=== PATIENT | female | born 1970 | race African-American/Black ===

== ENCOUNTER 2020-11-15 16:30 | Outpatient (CLI) | payer BC | END 2020-11-15 16:31 | disposition critical access hospital (66) | LOC: EMS 16:30 | DX: S99.912A Unspecified injury of left ankle, initial encounter (principal); W18.39XA Other fall on same level, initial encounter; Y93.51 Activity, roller skating (inline) and skateboarding | CPT/HCPCS: A0425; A0427 ==

== ENCOUNTER 2020-11-15 16:50 | Emergency (ER) | payer BC, MEDICAID ==
[2020-11-15] MEDS ORDERED: HYDROmorphone 1 MG/ML CARPUJECT IVP STA ×2 (17:15→17:54)
[2020-11-15] MEDS ORDERED: KETOROLAC 30 MG/ML VIAL IVP STA (17:16)
[2020-11-15 18:06] VITALS: BP 116/50
--- NOTE | 2020-11-15 18:08 | ED Physician Documentation ---
PD HPI LOWER EXT INJURY - Stated complaint Stated Complaint: GLF - Chief complaint Chief Complaint: Trauma Ext - History obtained from History obtained from: Patient - History of Present Illness PD HPI LOW EXT INJURY LOCATION: Left, Ankle Type of injury: Fall (while rollerblading, had fall and twist of ankle, with pain and apparent angulation, that was straightened out at the scene. Here by EMS.) Where injury occurred: Other (roller rink) Timing - onset: How many minutes ago (30) Timing - details: Abrupt onset, Still present Improved by: Immobilization (the splint enroute helped) Worsened by: Moving, Palpating Associated symptoms: Swelling. No: Weakness, Numbness Similar symptoms before: Has not had sx before Review of Systems Constitutional: denies: Fever Nose: denies: Rhinorrhea / runny nose, Congestion Throat: denies: Sore throat Respiratory: denies: Cough Skin: denies: Abrasion (s), Laceration (s) Neurologic: denies: Altered mental status, Head injury PD PAST MEDICAL HISTORY - Past Medical History Past Medical History: Yes Cardiovascular: None Respiratory: None Neuro: Other Endocrine/Autoimmune: HyPOthyroidism GI: Hemorrhoids, Other : Frequency HEENT: None Psych: Claustrophobia Musculoskeletal: Other Derm: None - Past Surgical History 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 Neuro: Other - Present Medications Home Medications: Ambulatory Orders Medication Instructions Recorded Confirmed Ibuprofen [Motrin] 600 mg PO TID #30 tab 12/21/15 Multivitamin [Multivitamins] 12/21/15 [place]-3S/Dha/Epa/Fish Oil [Fish 12/21/15 Oil 1,200 mg Softgel] Tramadol HCl 50 mg PO Q6H PRN #20 tablet 12/21/15 Hydrocodone/Acetaminophen [[place] 1 each PO Q6H PRN #15 tablet 01/31/20 5-325 Tablet] Naproxen 500 mg PO BID #25 tablet 01/31/20 Tizanidine HCl 4 mg PO TID PRN #30 capsule 01/31/20 HYDROcod/ACETAM 5/325 [[place] 5/325] 1 ea PO Q6H PRN #20 tablet 11/15/20 Ibuprofen [Motrin] 600 mg PO TID PRN #25 tab 11/15/20 - Allergies Allergies/Adverse Reactions: Allergies Allergy/AdvReac Type Severity Reaction Status Date / Time No Known Drug Allergies Allergy Verified 11/15/20 17:01 - Social History Does the pt smoke?: No Smoking Status: Never smoker Does the pt drink ETOH?: No Does the pt have substance abuse?: No - Immunizations Immunizations are current?: Yes PD ED PE NORMAL - Vitals Vital signs reviewed: Yes - General General: Alert and oriented X 3, Well developed/nourished, Other (appears in pain) - HEENT HEENT: Atraumatic - Neck Neck: Supple, no meningeal sign, No bony TTP - Derm Derm: Normal color, Warm and dry - Extremities Extremities: Other (left ankle with swelling and marked tenderness bilaterally. ) - Neuro Neuro: Alert and oriented X 3, No motor deficit, No sensory deficit, Normal speech Results - Vitals Vitals: Vital Signs - 24 hr 11/15/20 16:58 Temperature 36.9 C Heart Rate 91 Respiratory 16 Rate Blood Pressure 123/47 L O2 Saturation 100 Oxygen O2 Source Room air - Rads (name of study) left ankle Radiology: Prelim report reviewed (bimalleolar fracture with subluxation of the mortis. ), See rad report Procedures - Splint (location) ankle left Splint applied by: Physician, Tech Type of splint: Fiberglass, Posterior, Stirrup Other: Patient tolerated well (given IV pain meds prior to splinting.), No complications, Neurovascular intact, Good alignment, Crutches provided PD MEDICAL DECISION MAKING - ED course Complexity details: reviewed results, considered differential, d/w patient, d/w mental health consultant (Dr. Montero, mental health consultant for ortho, who reviewed the images and we discussed treatment plan/time course. ) Departure - Departure Disposition: 01 Home, Self Care Clinical Impression: Bimalleolar ankle fracture Qualifiers: Encounter type: initial encounter Fracture type: closed Laterality: left Qualified Code(s): S82.842A - Displaced bimalleolar fracture of left lower leg, initial encounter for closed fracture Condition: Stable Record reviewed to determine appropriate education?: Yes Instructions: ED Fx Ankle General Follow-Up: GABI ROMERO, MSN, ENGINEERING DESIGNER [Primary Care Provider] - Roney Montero MD [Provider Admit Priv/Credential] - Prescriptions: Ibuprofen [Motrin] 600 mg PO TID PRN #25 tab PRN Reason: Pain HYDROcod/ACETAM 5/325 [[place] 5/325] 1 ea PO Q6H PRN #20 tablet PRN Reason: Pain Comments: In place. Nonweightbearing with crutches. Follow-up with your orthopedic clinic later this week or within a week or so. Call Monday morning for an appointment. Elevate rest and ice the ankle often. The orthopedists want the swelling of these types of fracture to go down before doing surgical fixation (plates and screws). Therefore the maneuvers to decrease swelling are good with elevate ice and rest. Use anti-inflammatory such as ibuprofen 3 times a day. To that add Tylenol every 4 hours if needed for pain or hydrocodone if needed for worse pain. The worst pain of this typically is the first several days as initial inflammation and swelling decrease. This will however take about 6 weeks for full healing even after repair.
--- NOTE | 2020-11-15 18:11 | XRAY Report ---
PROCEDURE: Ankle 3 View LT INDICATIONS: ankle injury walking TECHNIQUE: 3 views of the ankle were acquired. COMPARISON: None FINDINGS: Bones: Comminuted, mildly displaced distal fibular fracture. Ankle mortise is normally aligned. No s uspicious bony lesions. Soft tissues: Ankle edema. Achilles tendon appears normal. IMPRESSION: Comminuted mildly displaced distal fibular fracture is present. Reviewed by: Letitia Jean Baptiste MD on 11/15/2020 6:09 PM PDT Approved by: Letitia Jean Baptiste MD on 11/15/2020 6:09 PM PDT Station ID: [id number]
== END 2020-11-15 18:48 | disposition home or self-care (01) ==
LOC: EDUNIT# → ED 16:50
DX: S82.842A Displaced bimalleolar fracture of left lower leg, initial encounter for closed fracture (principal); W18.30XA Fall on same level, unspecified, initial encounter; Y93.51 Activity, roller skating (inline) and skateboarding; Y92.331 Roller skating rink as the place of occurrence of the external cause
CPT/HCPCS: 29515; 73610; 96374; 96375; 96376; 99284; J1170

== ENCOUNTER 2020-11-24 17:21 | Outpatient (CLI) | payer BC ==
--- NOTE | 2020-11-24 15:28 | XRAY Report ---
PROCEDURE: Ankle 3 View LT INDICATIONS: L ANKLE PX TECHNIQUE: 3 views of the ankle were acquired. COMPARISON: 11/15/2020. FINDINGS: Bones: There is a spiral fracture of the distal fibula redemonstrated extending to the tibiofibular s yndesmosis. There is associated mild syndesmotic widening as well as mild widening of the medial ankl e mortise. There is a mildly displaced fracture of the medial malleolus also redemonstrated. A suspec kirill mildly displaced fracture of the posterior malleolus is also noted on the lateral view. Soft tissues: There is a small tibiotalar joint effusion. Achilles tendon appears intact. IMPRESSION: 1. Fractures of the medial and lateral malleoli demonstrated as well as suspected fracture of the pos terior malleolus. 2. Widening of the medial ankle mortise and distal tibiofibular syndesmosis compatible with ligamento us injury. Reviewed by: Modesto Garcia MD on 11/24/2020 3:27 PM PDT Approved by: Modesto Garcia MD on 11/24/2020 3:27 PM PDT Station ID: [id number]
== END 2020-11-24 23:59 | disposition home or self-care (01) ==
LOC: DI.N 17:21
PROVIDERS: ATTEND Orthopaedic Surgery
DX: S82.842A Displaced bimalleolar fracture of left lower leg, initial encounter for closed fracture (principal); R93.6 Abnormal findings on diagnostic imaging of limbs
CPT/HCPCS: 0202U

== ENCOUNTER 2020-11-25 11:22 | Day surgery (SDC) | payer BC ==
--- OUTSIDE RECORDS SUMMARY | 2020-11-25 11:26 | EXTERNAL MEDICAL SUMMARY RPT | Continuity of Care Document ---
:1970 Demographics Phone Unavailable Preferred Language Unknown Marital Status Unknown Religion Affiliation Unknown Race Unknown Ethnic Group Unknown Author Organization [place] Address [address] [id number] Phone Allergies Encounters Medications Problems Results
[2020-11-25] MEDS ORDERED: GABAPENTIN 400 MG CAPSULE ONE (11:34)
[2020-11-25] MEDS ORDERED: CELECOXIB 100 MG CAPSULE PO ONE (11:34)
[2020-11-25] MEDS ORDERED: ACETAMINOPHEN 1,000 MG/100 ML 100 ML IV ONE (11:35)
[2020-11-25] MEDS ORDERED: ceFAZolin 2 GM/50 ML 2 GM/50 ML BAG IV ONE (11:35)
[2020-11-25] MEDS ORDERED: LACTATED RINGERS 1,000 ML IV ONE ×3 (11:55→17:27)
[2020-11-25 12:51] LABS: B. PARAPERTUSSIS- RESP PCR PAN NOT DETECTED; B. PERTUSSIS- RESP PCR PANEL NOT DETECTED; C. PNEUMONIAE- RESP PCR PANEL NOT DETECTED; CORONAVIRUS 229E-RESP PCR NOT DETECTED; CORONAVIRUS HKU1-RESP PCR NOT DETECTED; CORONAVIRUS NL63-RESP PCR NOT DETECTED; CORONAVIRUS OC43-RESP PCR NOT DETECTED; HUMAN METAPNEUMOVIRUS NOT DETECTED; INFLUENZA A- RESP PCR PANEL NOT DETECTED; INFLUENZA B - RESP PCR PANEL NOT DETECTED; M. PNEUMONIAE- RESP PCR PANEL NOT DETECTED; PARAINFLUENZA VIRUS 1 NOT DETECTED; PARAINFLUENZA VIRUS 2 NOT DETECTED; PARAINFLUENZA VIRUS 3 NOT DETECTED; PARAINFLUENZA VIRUS 4 NOT DETECTED; RHINOVIRUS/ENTEROVIRUS NOT DETECTED; RSV- RESP PCR PANEL NOT DETECTED; SARS-CoV-2 -RESP PCR PANEL NOT DETECTED
[2020-11-25] MEDS ORDERED: PROPOFOL 200 MG/20 ML VIAL IVP ONE (14:02)
[2020-11-25] MEDS ORDERED: fentaNYL 100 MCG/2 ML VIAL ONE ×2 (14:02→16:25)
[2020-11-25] MEDS ORDERED: MIDAZOLAM 2 MG/2 ML VIAL ONE (14:02)
[2020-11-25] MEDS ORDERED: ROPIVACAINE 0.5% PF 20 ML AMPULE ONE (14:02)
[2020-11-25] MEDS ORDERED: DEXAMETHASONE 4 MG/ML VIAL ONE ×2 (14:02→14:42)
[2020-11-25] MEDS ORDERED: oxyCODONE 5 MG TABLET PO PRN (14:02)
[2020-11-25] MEDS ORDERED: LIDOCAINE-MPF 2% 5 ML VIAL ONE (14:02)
[2020-11-25] MEDS ORDERED: KETOROLAC 15 MG/ML VIAL IVP STA (14:02)
--- NOTE | 2020-11-25 14:04 | ANESTHESIA ---
Pre-Anesthesia VS, & Labs - Diagnosis left ankle fracture - Procedure ORIF left fracture Vital Signs: Temp Pulse Resp BP Pulse Ox 36.5 C 86 15 152/75 H 98 11/25/20 11:57 11/25/20 11:57 11/25/20 11:57 11/25/20 11:57 11/25/20 11:57 Height: 5 ft 4 in Weight (kg): 69 kg Body Mass Index: 26.1 BMI Classification: Overweight - NPO >8 hours - Is Patient ?: No - Lab Results Current Lab Results: Laboratory Tests 11/25/20 12:16: POC Whole Bld Glucose 95 Home Medications and Allergies Multivitamin [Multivitamins] 12/21/15 [place]-3S/Dha/Epa/Fish Oil [Fish Oil 1,200 mg Softgel] 12/21/15 Allergies/Adverse Reactions: Allergies Allergy/AdvReac Type Severity Reaction Status Date / Time No Known Drug Allergies Allergy Verified 11/25/20 12:21 Anes History & Medical History - Anesthetic History Anesthesia Complications: reports: No previous complications - Medical History Cardiovascular: reports: None Pulmonary: reports: None Gastrointestinal: reports: Hemorrhoids, Other Urinary: reports: Frequency Neuro: reports: Other Musculoskeletal: reports: Other Endocrine/Autoimmune: reports: HyPOthyroidism Skin: reports: None Smoking Status: Never smoker - Surgical History Gynecologic: reports: Other Neurologic: reports: Craniotomy Exam General: Alert Dental: Dentures full Upper, Dentures full Lower Mouth Opening: Greater than 4 Fingerbreadths Mallampati classification: II Thyromental Distance: greater than 6 cm Respiratory: Lungs clear Cardiovascular: Regular rate Plan Anesthesia Type: General Consent for Procedure(s) Verified and Reviewed: Yes Code Status: Attempt Resuscitation ASA classification: 2-Mild systemic disease Is this case an emergency?: No
[2020-11-25] MEDS ORDERED: fentaNYL 100 MCG/2 ML VIAL IVP PRN (14:08)
[2020-11-25] MEDS ORDERED: ATROPINE ABBOJECT 1 MG/10 ML SYRINGE IVP PRN (14:08)
[2020-11-25] MEDS ORDERED: ePHEDrine 50 MG/ML VIAL IVP PRN (14:08)
[2020-11-25] MEDS ORDERED: METOCLOPRAMIDE 10 MG/2 ML VIAL IVP PRN (14:08)
[2020-11-25] MEDS ORDERED: HYDROmorphone 0.5 MG/0.5 ML SYRINGE IVP PRN (14:08)
[2020-11-25] MEDS ORDERED: MORPHINE 2 MG/ML CARPUJECT IVP PRN (14:08)
[2020-11-25] MEDS ORDERED: NALOXONE 0.4 MG/ML VIAL IVP PRN (14:08)
[2020-11-25] MEDS ORDERED: ONDANSETRON 4 MG/2 ML VIAL IVP PRN (14:08)
[2020-11-25] MEDS ORDERED: LACTATED RINGERS 1,000 ML IV SCH (15:00)
[2020-11-25] MEDS ORDERED: KETOROLAC 30 MG/ML VIAL ONE (16:45)
[2020-11-25] MEDS ORDERED: ONDANSETRON 4 MG/2 ML VIAL ONE (16:45)
--- NOTE | 2020-11-25 17:00 | OPERATIVE REPORT ---
Operative Report - General Procedure Date: 11/25/20 Planned Procedure: Open reduction internal fixation bimalleolar fracture left ankle Pre-Op Diagnosis: Displaced bimalleolar fracture left ankle Procedure Performed: Open reduction internal fixation bimalleolar fracture left ankle including medial and lateral malleoli Post Op Diagnosis: Same as preop diagnosis - Procedure Note Primary Surgeon: Bruce Cordero MD Secondary Surgeon: Manjit MAE, David Mccracken PAC Anesthesia Technique: General ET tube, Regional block Estimated Blood Loss (mL): 25 Indications: This is a 50-year-old active woman, injured her left ankle rollerskating and sustained a closed, displaced bimalleolar fracture of the left ankle approximately 8 to 9 days ago. She was seen yesterday for the first time in the orthopedic clinic.X-rays show displaced bimalleolar fracture of the left ankle, question of a possible posterior malleolar fracture. The fracture of the medial malleolus was at the joint line and the fracture of the lateral malleolus extended from the joint line in a proximal and spiral direction. Complications: None - Other Other Information/Narrative: The patient was brought to the operating room, placed in the supine position. General anesthesia was achieved. The left leg was placed on a foam bolster and a gel bag was placed beneath the left buttock to help with internal rotation of the left leg. Pneumatic tourniquet was applied to the proximal left thigh. The skin over the thigh was protected with cast padding. The left lower extremity was prepped and draped in a sterile manner in the usual fashion. A timeout procedure was performed by the entire operating room team and all were in agreement. The medial aspect of the ankle was approached with a longitudinal incision over the medial malleolus. Care was taken to protect the saphenous vein. The fracture was identified, fracture hematoma removed with curette and irrigation. A small medial arthrotomy was made into the ankle joint. The ankle joint was then inspected and the plafond and and talar articular cartilage appeared to be intact. I did not see a definite posterior malleolar fracture. A longitudinal incision was made over the lateral malleolus beginning at the tip of the lateral malleolus and extending it proximally along the posterior border of the fibula. The peroneal muscle and tendons were retracted in the posterior lateral aspect of the fibula was subperiosteally exposed. The fracture hematoma was removed with curette and irrigating fluid. The lateral malleolar fracture was temporarily reduced and secured with a small bone clamp and a intramedullary K wire. The [employer] posterior lateral locking plate was applied and secured with K wires. Screws were placed proximal and distal, nonlocking to compress the plate to bone and a lag screw was placed through the plate across the fracture. An intramedullary screw was then placed from the tip of the lateral malleolus, 60 mm in length to provide additional fixation. Screws were then filled proximal and distal to the fracture site. The C-arm image intensifier was utilized for biplanar imaging and showed good alignment of the fracture. There was some comminution over the posterior aspect of the fracture of the fibula proximally. The fracture of the medial malleolus was then reduced with a small pointed bone clamp. Two 4.0 mm cancellous lag screws were inserted, cannulated screws 48 and 46 mm in length. This provided good fixation and alignment. Intraoperative x-rays were obtained, biplanar. I did not see a posterior malleolar fracture. An external rotation stress test was done to evaluate the syndesmosis and there was no widening of the medial clear space or the syndesmosis. The wounds were irrigated the subcutaneous tissue was closed with 2-0 Vicryl and the skin was closed standstill jenaro to both medial and lateral incisions to left ankle Xeroform, bacitracin, sterile gauze, several layers of cast padding and a sugar tong fiberglass splint with Piero wrap was applied. The patient received 2 g of Ancef. The tourniquet time was less than 2 hours. Hemostasis was achieved electrocautery. A physician data control assistant was utilized to facilitate exposure, protection of vital structures, reduction of fracture, wound closure and splint application.
--- NOTE | 2020-11-25 17:35 | XRAY Report ---
PROCEDURE: OR C-Arm Procedure INDICATIONS: ANKLE FRACTURE TECHNIQUE: 2 intraoperative fluoroscopic images of left ankle were obtained. COMPARISON: Ankle radiographs dated 11/24/2020 and 11/15/2020. FINDINGS: Intraoperative fluoroscopic images of ankle shows internal fixation of medial malleolus and distal fi bular shaft with surgical hardware in place. Ankle alignment is anatomic. Total fluoroscopy time is 1 5 seconds. IMPRESSION: Fluoroscopy guidance was provided intraoperatively for ORIF of left ankle. Reviewed by: Harry Landon MD on 11/25/2020 5:34 PM PDT Approved by: Harry Landon MD on 11/25/2020 5:34 PM PDT Station ID: [id number]
[2020-11-25 18:45] VITALS: BP 122/64
--- NOTE | 2020-11-25 19:32 | ANESTHESIA POST OP EVALUATION ---
Anesthesia Post Eval - Post Anesthesia Eval Vitals: Last Vital Signs Temp 36.5 C 11/25/20 18:45 Pulse 64 11/25/20 18:45 Resp 18 11/25/20 18:45 BP 122/64 11/25/20 18:45 Pulse Ox 97 11/25/20 18:45 CV Function Including HR & BP: Stable Pain Control: Satisfactory Nausea & Vomiting: Negative Mental Status: Baseline Respiratory Status: Airway Patent Hydration Status: Satisfactory Anesthesia Complications: None
== END 2020-11-25 11:23 | disposition home or self-care (01) ==
LOC: SDS 11:22
PROVIDERS: ATTEND Orthopaedic Surgery
PROC: 0QSH04Z Reposition Left Tibia with Internal Fixation Device, Open Approach (ICD-10-PCS; 2020-11-25)
PROC: 0QSK04Z Reposition Left Fibula with Internal Fixation Device, Open Approach (ICD-10-PCS; principal; 2020-11-25 14:00)
DX: S82.842A Displaced bimalleolar fracture of left lower leg, initial encounter for closed fracture (principal); W18.30XA Fall on same level, unspecified, initial encounter; Y93.51 Activity, roller skating (inline) and skateboarding; Y92.331 Roller skating rink as the place of occurrence of the external cause; E03.9 Hypothyroidism, unspecified; R35.0 Frequency of micturition; E66.3 Overweight; Z68.26 Body mass index [BMI] 26.0-26.9, adult; Z79.899 Other long term (current) drug therapy; Z20.822 Contact with and (suspected) exposure to COVID-19; Z86.001 Personal history of in-situ neoplasm of cervix uteri; Z92.21 Personal history of antineoplastic chemotherapy; Z86.39 Personal history of other endocrine, nutritional and metabolic disease
CPT/HCPCS: 0202U; 27814; A9270; C1713; J0131; J0690; J7120; 81025

== ENCOUNTER 2021-01-25 08:00 | Outpatient (CLI) | payer BC ==
--- NOTE | 2021-01-25 17:21 | XRAY Report ---
PROCEDURE: Ankle 3 View LT INDICATIONS: DISPLACED BIMALLEOLAR FX OF L LOWER LEG TECHNIQUE: 3 views of the ankle were acquired. COMPARISON: 11/24/2020. FINDINGS: Bones: Postsurgical changes compatible with ORIF of lateral and medial malleolar fractures and reduct ion of tibiotalar joint subluxation noted in the interval since prior exam obtained 11/24/2020. There is near anatomic alignment of the fracture fragments following ORIF. Soft tissues: No tibiotalar joint effusion. Achilles tendon appears normal. IMPRESSION: Status post ORIF of medial and lateral malleoli fracture. Reviewed by: Shania Brandt MD, PhD on 01/25/2021 5:20 PM PDT Approved by: Shania Brandt MD, PhD on 01/25/2021 5:20 PM PDT Station ID: [id number]
== END 2021-01-25 23:59 | disposition home or self-care (01) ==
LOC: DI.N 08:00
PROVIDERS: ATTEND Physician Assistant
DX: S82.842B Displaced bimalleolar fracture of left lower leg, initial encounter for open fracture type I or II (principal)